=== PATIENT | female | born 1990 | race Caucasian/White ===

== ENCOUNTER 2017-05-20 06:03 | Day surgery (SDC) | payer MEDICAID ==
[2017-05-19 12:16] LABS: HCG SERUM QL NEGATIVE
[2017-05-19 12:17] LABS: ALBUMIN 3.9 G/DL (3.4-5.0); ANION GAP 10 (8-16); BLOOD UREA NITROGEN 16 MG/DL (7-18); BUN/CREATININE RATIO 28.6 (6.6-38.0); CALCIUM 8.9 MG/DL (8.5-10.1); CHLORIDE 104 MMOL/L (99-107); CREATININE 0.56 MG/DL (0.40-0.90); GLUCOSE 98 MG/DL (70-104); POTASSIUM 3.6 MMOL/L (3.5-5.1); SODIUM 142 MMOL/L (135-145); TOTAL CARBON DIOXIDE 28.1 MMOL/L (24-32); eGFR > 90 ML/MIN
[2017-05-19 12:30] LABS: BASOPHILS % (AUTO) 0.4 % (0-1); EOSINOPHILS # (AUTO) 0.2 X10'3 (0-0.9); EOSINOPHILS % (AUTO) 2.4 % (0-6); LYMPHOCYTES # (AUTO) 2.2 X10'3 (1.1-4.8); LYMPHOCYTES % (AUTO) 27.1 % (21-51); MEAN CORPUSCULAR HEMOGLOBIN 27.9 PG (27.0-31.0); MEAN CORPUSCULAR HGB CONC 34.5 % (33.0-36.5); MEAN CORPUSCULAR VOLUME 80.7 FL (78-98); MONOCYTES # (AUTO) 0.4 X10'3 (0-0.9); NEUTROPHILS # (AUTO) 5.4 X10'3 (1.8-7.7); NEUTROPHILS % (AUTO) 65.1 % (42-75); PRE OP HEMATOCRIT 35.4 % (35.0-45.0); PRE OP HEMOGLOBIN 12.2 g/dL (12.0-16.0); PRE OP PLATELET COUNT 228 X10'3 (140-440); RED BLOOD COUNT 4.39 X10'6 (4.20-5.60); RED CELL DISTRIBUTION WIDTH 13.8 % (11.5-14.5)
[2017-05-20] VITALS (9 sets, daily range): BP systolic 96–155; BP diastolic 55–79
[~2017-05-20] VITALS: Ht 154.9 cm; Wt 61.2 kg
[~2017-05-20 06:03] MED LIST: DULO20CA50 PO; IBUP-1984 PO; LIDOcaine 1% (10mg/ml) 2ml vial ONE; famotidine 20mg tablet PO ONE; ringers solution, lacted 1,000 ML IV SCH
[2017-05-20] MEDS ORDERED: LIDOcaine 1% (10mg/ml) 2ml vial ONE (06:12)
[2017-05-20] MEDS ORDERED: fentaNYL/PF 50MCG/1 ML 2ML syringe ONE (06:47)
[2017-05-20] MEDS ORDERED: midazolam 2 mg/2 ml injection ONE (06:47)
[2017-05-20] MEDS ORDERED: propofol inj 20 ML IV ONE (06:49)
[2017-05-20] MEDS ORDERED: LIDOcaine 2% (20mg/ml) 5ml vial ONE (06:49)
[2017-05-20] MEDS ORDERED: rocuronium 10mg/ml inj IV ONE (06:49)
[2017-05-20] MEDS ORDERED: ringers solution, lacted 1,000 ML IV SCH (07:51)
[2017-05-20] MEDS ORDERED: ondansetron/PF 4mg/2ml inj IV PRN (07:55)
[2017-05-20] MEDS ORDERED: proCHLORperazine 10 MG/2 ml inj IV PRN (07:55)
[2017-05-20] MEDS ORDERED: meperidine/PF 50mg/ml syringe IV PRN ×3 (07:55)
[2017-05-20] MEDS ORDERED: morphine 2 MG/ML inj. syringe IV PRN ×2 (07:55)
[2017-05-20] MEDS ORDERED: dexamethasone sod phosphate 4mg/ml inj. ONE (08:01)
[2017-05-20] MEDS ORDERED: neostigmine methylsulfate 1 MG/ML 10ml vial ONE (08:04)
[2017-05-20] MEDS ORDERED: glycopyrrolate 0.2mg/ml inj ONE (08:04)
[2017-05-20] MEDS ORDERED: ondansetron/PF 4mg/2ml inj ONE (08:04)
== END 2017-05-20 09:31 | disposition home or self-care (01) ==
LOC: PAS 06:03
PROVIDERS: ATTEND Obstetrics & Gynecology
DX: Z30.2 Encounter for sterilization (principal); F41.9 Anxiety disorder, unspecified; F32.9 Major depressive disorder, single episode, unspecified; Z88.0 Allergy status to penicillin; Z91.010 Allergy to peanuts; Z88.1 Allergy status to other antibiotic agents; Z79.1 Long term (current) use of non-steroidal anti-inflammatories (NSAID)
CPT/HCPCS: 36415; 58670; 80048; 84703; 85025; J1100; J2001; J2175; J2250; J2405; J2704; J2710; J3010; J3490; J7120; A7000

== ENCOUNTER 2017-06-07 12:44 | Emergency (ER) | payer OTHER, MEDICAID ==
[~2017-06-07] VITALS: Ht 154.9 cm; Wt 60.5 kg
[~2017-06-07 12:44] MED LIST changes: -LIDOcaine 1% (10mg/ml) 2ml vial ONE; -famotidine 20mg tablet PO ONE; -ringers solution, lacted 1,000 ML IV SCH
[2017-06-07] MEDS ORDERED: ketorolac trometh. 30mg/ml inj. IV ONE (13:10)
[2017-06-07 14:06] LABS: URINE HCG NEGATIVE (NEG)
[2017-06-07] MEDS ORDERED: IBUP-1985 PO (14:44)
[2017-06-07 15:12] VITALS: BP 129/78
== END 2017-06-07 15:13 | disposition home or self-care (01) ==
LOC: ER 12:44
DX: S81.012A Laceration without foreign body, left knee, initial encounter (principal); Z88.0 Allergy status to penicillin; Z88.1 Allergy status to other antibiotic agents; Z91.010 Allergy to peanuts; Z79.899 Other long term (current) drug therapy; V89.2XXA Person injured in unspecified motor-vehicle accident, traffic, initial encounter; Y93.89 Activity, other specified; Y92.410 Unspecified street and highway as the place of occurrence of the external cause; Y99.8 Other external cause status
CPT/HCPCS: 12001; 73564; 81025; 96374; 99285; A6449; J1885

== ENCOUNTER 2017-12-06 09:48 | Emergency (ER) | payer MEDICAID ==
[~2017-12-06] VITALS: Ht 154.9 cm; Wt 65.2 kg
[~2017-12-06 09:48] MED LIST changes: +IBUP-1985 PO
[2017-12-06 10:35] LABS: BASOPHILS # (AUTO) 0.1 X10'3 (0-0.2); BASOPHILS % (AUTO) 0.4 % (0-1); EOSINOPHILS # (AUTO) 0.2 X10'3 (0-0.9); EOSINOPHILS % (AUTO) 1.6 % (0-6); HEMATOCRIT 36.7 % (35.0-45.0); HEMOGLOBIN 12.6 g/dl (12.0-16.0); LYMPHOCYTES # (AUTO) 1.8 X10'3 (1.1-4.8); LYMPHOCYTES % (AUTO) 13.7 % (21-51); MEAN CORPUSCULAR HEMOGLOBIN 28.9 PG (27.0-31.0); MEAN CORPUSCULAR HGB CONC 34.2 % (33.0-36.5); MEAN CORPUSCULAR VOLUME 84.5 FL (78-98); MEAN PLATELET VOLUME 7.5 FL (7.4-10.4); MONOCYTES # (AUTO) 0.5 X10'3 (0-0.9); NEUTROPHILS # (AUTO) 10.6 X10'3 (1.8-7.7); NEUTROPHILS % (AUTO) 80.3 % (42-75); PLATELET COUNT 313 X10'3 (140-440); RED BLOOD COUNT 4.34 X10'6 (4.20-5.60); RED CELL DISTRIBUTION WIDTH 13.1 % (11.5-14.5); WHITE BLOOD COUNT 13.3 X10'3 (4.5-11.0)
[2017-12-06 10:35] LABS: COLOR,URINE Yellow (Yellow); GLUCOSE, URINE Negative (Neg); KETONES,URINE Negative (Neg); LEUKOCYTE ESTERASE ,URINE Moderate (Neg); NITRITES, URINE Negative (Neg); OCCULT BLOOD,URINE Small (Neg); PROTEIN,URINE Negative (Neg); URINE HCG NEGATIVE (NEG); UROBILINOGEN,URINE 0.2 E.U/dL (0.2-1.0)
[2017-12-06 10:38] LABS: CLARITY,URINE Slightly Cloudy (Clear); UA COLLECTION TYPE CLN CATCH MIDSTREAM
[2017-12-06 10:44] LABS: WBC,URINE 20-30 /HPF (0-4)
[2017-12-06 10:44] LABS: INR 0.9 INR; PROTHROMBIN TIME 9.8 SECONDS (9.0-12.0)
[2017-12-06 10:45] LABS: BACTERIA,URINE 1+ /HPF (Neg); RBC,URINE 0-2 /HPF (0-2); SQUAMOUS EPITHELIAL CELL,UR FEW /LPF (FEW); WBC CLUMPS,URINE MODERATE /HPF (NEGATIVE)
[2017-12-06 10:50] LABS: ALANINE AMINOTRANSFERASE 25 U/L (12-78); ALBUMIN 4.1 G/DL (3.4-5.0); ALKALINE PHOSPHATASE 91 IU/L (46-116); ANION GAP 10 (8-16); ASPARTATE AMINO TRANSFERASE 18 U/L (10-37); BILIRUBIN,TOTAL 0.8 MG/DL (0.1-1.0); BLOOD UREA NITROGEN 12 MG/DL (7-18); BUN/CREATININE RATIO 18.8 (6.6-38.0); CALCIUM 9.1 MG/DL (8.5-10.1); CHLORIDE 103 MMOL/L (99-107); CREATININE 0.64 MG/DL (0.40-0.90); GLUCOSE 101 MG/DL (70-104); POTASSIUM 3.9 MMOL/L (3.5-5.1); SODIUM 140 MMOL/L (135-145); TOTAL CARBON DIOXIDE 26.6 MMOL/L (24-32); TOTAL PROTEIN 8.1 G/DL (6.4-8.2); eGFR > 90 ML/MIN
[2017-12-06 11:09] VITALS: BP 106/60
[2017-12-06] MEDS ORDERED: normal saline 1000ML IV soln IVB ONE (11:35)
[2017-12-06] MEDS ORDERED: ondansetron/PF 4mg/2ml inj IV ONE (11:35)
[2017-12-06] MEDS ORDERED: CEPH-571 PO (11:37)
[2017-12-06] MEDS ORDERED: ONDA4TAB9 SL (11:37)
== END 2017-12-06 12:40 | disposition home or self-care (01) ==
LOC: ER 09:49
DX: N39.0 Urinary tract infection, site not specified (principal); E86.0 Dehydration; Z88.0 Allergy status to penicillin; Z88.1 Allergy status to other antibiotic agents; Z91.010 Allergy to peanuts; Z79.2 Long term (current) use of antibiotics; Z79.899 Other long term (current) drug therapy
CPT/HCPCS: 36415; 80053; 81001; 81025; 85025; 85610; 87077; 87088; 87186; 96361; 96374; 99284; J2405; J7030

== ENCOUNTER 2021-02-18 19:12 | Emergency (ER) | payer MEDICAID ==
[~2021-02-18] VITALS: Ht 154.9 cm; Wt 76.8 kg
[~2021-02-18 19:12] MED LIST changes: +CEPH-571 PO
--- NOTE | 2021-02-18 19:49 | NUR ---
Note giselle in EDM - 02/18/21 at 2010 by [email or web address] 4 RNs have tried placing an IV. ONE MORE RN WILL TRY WITH AN ULTRASOUND. MEDS ARE DELAYED.
[2021-02-18] MEDS ORDERED: CLIN300C70 PO (20:46)
[2021-02-18 20:54] VITALS: BP 114/77
== END 2021-02-18 20:57 | disposition home or self-care (01) ==
LOC: ER 19:13
DX: J06.9 Acute upper respiratory infection, unspecified (principal); Z20.822 Contact with and (suspected) exposure to COVID-19; J32.9 Chronic sinusitis, unspecified; R05.9 Cough, unspecified; R07.89 Other chest pain; R50.9 Fever, unspecified; F32.9 Major depressive disorder, single episode, unspecified; F17.200 Nicotine dependence, unspecified, uncomplicated; F12.90 Cannabis use, unspecified, uncomplicated; Z86.2 Personal history of diseases of the blood and blood-forming organs and certain disorders involving the immune mechanism; Z87.440 Personal history of urinary (tract) infections; Z88.0 Allergy status to penicillin; Z88.1 Allergy status to other antibiotic agents; Z91.010 Allergy to peanuts; Z79.2 Long term (current) use of antibiotics; Z79.899 Other long term (current) drug therapy
CPT/HCPCS: 87635; 99283; C9803

== ENCOUNTER 2021-08-21 18:08 | Emergency (ER) | payer MEDICAID ==
[~2021-08-21] VITALS: Ht 154.9 cm; Wt 72.3 kg
[2021-08-21 18:51] VITALS: BP 112/76
[2021-08-21] MEDS ORDERED: normal saline 1000ml 1,000 ML IV ONE (19:00)
[2021-08-21] MEDS ORDERED: proCHLORperazine 10 MG/2 ml inj IV ONE (19:00)
[2021-08-21] MEDS ORDERED: diphenhydrAMINE 50 mg/ml inj IV ONE (19:00)
[2021-08-21] MEDS ORDERED: ketorolac tromethamine 15mg/ml inj. IM ONE (19:30)
[2021-08-21] MEDS ORDERED: ONDA4TAB12 PO (19:37)
[2021-08-21] MEDS ORDERED: ketorolac trometh. 30mg/ml inj. IV ONE (20:10)
== END 2021-08-21 20:35 | disposition home or self-care (01) ==
LOC: ER 18:08
DX: R51.9 Headache, unspecified (principal); R11.2 Nausea with vomiting, unspecified; F32.9 Major depressive disorder, single episode, unspecified; F12.10 Cannabis abuse, uncomplicated; D64.9 Anemia, unspecified; Z88.0 Allergy status to penicillin; Z88.1 Allergy status to other antibiotic agents; Z91.010 Allergy to peanuts
CPT/HCPCS: 70450; 96361; 96374; 96375; 99284; J0780; J1200; J1885; J7030